=== PATIENT | male | born 1970 | race African-American/Black ===

== ENCOUNTER 2021-04-01 03:25 | Emergency (ER) | payer MEDICAID ==
[~2021-04-01] VITALS: Ht 177.8 cm; Wt 83.9 kg
[2021-04-01 03:37] VITALS: BP 168/104
[2021-04-01 03:40] VITALS: BP 168/104
[2021-04-01] MEDS ORDERED: KETOROLAC 30 MG/ML VIAL IM ONE (03:45)
== END 2021-04-01 05:10 ==
LOC: MED 03:25
DX: R07.9 Chest pain, unspecified (principal); F10.129 Alcohol abuse with intoxication, unspecified; V98.8XXA Other specified transport accidents, initial encounter; Y93.89 Activity, other specified; Y92.89 Other specified places as the place of occurrence of the external cause; Y99.8 Other external cause status; Y90.9 Presence of alcohol in blood, level not specified
CPT/HCPCS: 71045; 96372; 99283; J1885